=== PATIENT | female | born 1980 | race Caucasian/White ===

== ENCOUNTER 2016-09-27 13:16 | Emergency (ER) | payer BC ==
[2016-09-27 13:34] VITALS: TEMP 98.6; BMI 20.2
--- NOTE | 2016-09-27 13:53 | PDOC ---
History of Present Illness - General History Source: Patient Exam Limitations: No Limitations - History of Present Illness Initial Comments: 09/27/16 14:22 The patient is a 36 year old female , with no significant past medical history who presents to the emergency department sent from [facility] DEVELOPER office for further evaluation of elevated blood pressure today. The patient reports a headache since she woke up this morning. She describes the headache as a pressure. She reports associated blurry vision. She denies any history of headaches in the past. The patient denies any chest pain, shortness of breath, diaphoresis, or palpitations. The patient denies any weakness, fever, chills, cough, dizziness, or lightheadedness. The patient denies any changes in dietary habits. Allergies: None reported. Past Surgical History: None reported. Social History: Non-smoker. Denies alcohol or drug use. PCP: Dr. Guevara SSRS DEVELOPER: Dr. Pete <Colin Aragon - Last Filed: 09/27/16 14:25> <Jessica Soto - Last Filed: 09/29/16 07:22> - General Chief Complaint: Blood Pressure Problem Stated Complaint: HIGH BLOOD PRESSURE, PCP SENT Time Seen by Provider: 09/27/16 13:49 Past History <Colin Aragon - Last Filed: 09/27/16 14:25> - Psycho/Social/Smoking Cessation Hx Suicidal Ideation: No Smoking History: Never smoked <Jessica Soto - Last Filed: 09/29/16 07:22> - Past Medical History Allergies/Adverse Reactions: Allergies Allergy/AdvReac Type Severity Reaction Status Date / Time No Known Allergies Allergy Verified 09/27/16 13:31 Home Medications: Ambulatory Orders NK [No Known Home Medication] 09/27/16 Review of Systems - Review of Systems Able to Perform ROS?: Yes Comments:: 09/27/16 14:22 GENERAL/CONSTITUTIONAL: No fever or chills. No weakness. HEAD, EYES, EARS, NOSE AND THROAT: +Blurry vision. No ear pain or discharge. No sore throat. CARDIOVASCULAR: +Elevated blood pressure. No chest pain or shortness of breath. RESPIRATORY: No cough, wheezing, or hemoptysis. GASTROINTESTINAL: No nausea, vomiting, diarrhea or constipation. GENITOURINARY: No dysuria, frequency, or change in urination. MUSCULOSKELETAL: No joint or muscle swelling or pain. No neck or back pain. SKIN: No rash NEUROLOGIC: +Headache. No vertigo, loss of consciousness, or change in strength/ sensation. ENDOCRINE: No increased thirst. No abnormal weight change. HEMATOLOGIC/LYMPHATIC: No anemia, easy bleeding, or history of blood clots. ALLERGIC/IMMUNOLOGIC: No hives or skin allergy. <Colin Aragon - Last Filed: 09/27/16 14:25> *Physical Exam - Vital Signs Last Vital Signs Temp Pulse Resp BP Pulse Ox 98.6 F 86 19 159/108 100 09/27/16 13:31 09/27/16 13:31 09/27/16 13:09/27/16 13:09/27/16 13:31 - Physical Exam Comments: 09/27/16 14:24 GENERAL: Awake, alert, and fully oriented, in no acute distress HEAD: No signs of trauma EYES: PERRLA, EOMI, sclera anicteric, conjunctiva clear ENT: Auricles normal inspection, hearing grossly normal, nares patent, oropharynx clear without exudates. Moist mucosa NECK: Normal ROM, supple, no lymphadenopathy, JVD, or masses LUNGS: Breath sounds equal, clear to auscultation bilaterally. No wheezes, and no crackles HEART: Regular rate and rhythm, normal S1 and S2, no murmurs, rubs or gallops ABDOMEN: Soft, nontender, normoactive bowel sounds. No guarding, no rebound. No masses EXTREMITIES: Normal range of motion, no edema. No clubbing or cyanosis. No cords, erythema, or tenderness NEUROLOGICAL: Cranial nerves II through XII grossly intact. Normal speech, normal gait. Motor strength and sensation intact SKIN: Warm, Dry, normal turgor, no rashes or lesions noted. <Colin Aragon - Last Filed: 09/27/16 14:25> - Vital Signs Last Vital Signs Temp Pulse Resp BP Pulse Ox 98.6 F 86 19 159/108 100 09/27/16 13:31 09/27/16 13:31 09/27/16 13:31 09/27/16 13:31 09/27/16 13:31 - Physical Exam Comments: VA: OS 20/50, OD 20/40 <Jessica Soto - Last Filed: 09/29/16 07:22> ED Treatment Course - LABORATORY CBC & Chemistry Diagram: 09/27/16 14:35 09/27/16 14:35 <Jessica Soto - Last Filed: 09/29/16 07:22> Medical Decision Making - Medical Decision Making 09/27/16 17:[address] Delong at shift change. Awaiting CTH to evaluate for c/ o high BP with headache and blurry vision. If wnl, likely DC home with prompt PMD f/u for repeat BP check. <Jessica Soto - Last Filed: 09/29/16 07:22> *DC/Admit/Observation/Transfer - Attestations Scribe Attestion: 09/27/16 14:25 Documentation prepared by Colin Aragon, acting as medical staff specialist for Jessica Soto MD. <Colin Aragon - Last Filed: 09/27/16 14:25> <Jessica Soto - Last Filed: 09/29/16 07:22> Diagnosis at time of Disposition: Elevated blood pressure - Discharge Dispostion Disposition: HOME Condition at time of disposition: Stable - Referrals Referrals: Chino Guevara MD [Staff Physician] - - Patient Instructions Printed Discharge Instructions: DI for High Blood Pressure Additional Instructions: Activity as tolerated. Stay hydrated. Tylenol 1000 mg every 8 hours and/or ibuprofen 600 mg every 8 hours as needed for pain. Blood tests and a CT scan of the head showed no acute abnormalities. Your blood pressure is elevated, and this needs to be rechecked with Dr. Guevara as soon as possible to evaluate if you need blood pressure medicine. You should follow up with your primary doctor as soon as possible (Thursday morning) regarding today's emergency department visit. Return to the emergency department for any new or concerning symptoms, particularly severe headache, vision changes, chest pain or difficulty breathing , difficulty speaking or focal weakness.
[2016-09-27 14:41] LABS: BASOPHIL 0.7 % (0-2.0); EOSINOPHIL 0.8 % (0-4.5); MCH 27.1 pg (25.7-33.7); MCHC 32.2 g/dl (32.0-36.0); MEAN CELL VOLUME 84.2 fl (80-96); MEAN PLT VOLUME 8.2 fl (7.5-11.1); PLATELET COUNT 265 K/MM3 (134-434); RDW 14.1 % (11.6-15.6); WHITE BLOOD COUNT 13.3 K/mm3 (4.0-10.0)
[2016-09-27 15:09] LABS: ALBUMIN 3.9 g/dl (3.4-5.0); ALK PHOS 66 U/L (45-117); ANION GAP 9 (8-16); BILIRUBIN,TOTAL 0.3 mg/dL (0.2-1.0); CALCIUM 9.1 mg/dL (8.5-10.1); CO2 26 mmol/L (21-32); CREATININE 0.6 mg/dL (0.55-1.02); GLUCOSE,RANDOM 82 mg/dL (74-106); SGOT/AST 13 U/L (15-37); SGPT/ALT 24 U/L (12-78); TOT PROT 7.3 g/dl (6.4-8.2)
--- NOTE | 2016-09-27 17:46 | PDOC ---
*Physical Exam - Vital Signs Last Vital Signs Temp Pulse Resp BP Pulse Ox 98.6 F 75 20 153/95 100 09/27/16 13:31 09/27/16 15:31 09/27/16 15:31 09/27/16 15:31 09/27/16 15:31 ED Treatment Course - LABORATORY CBC & Chemistry Diagram: 09/27/16 14:35 09/27/16 14:35 - ADDITIONAL ORDERS Additional order review: Laboratory Results 09/27/16 09/27/16 14:35 14:35 Sodium 140 Potassium 4.3 Chloride 105 Carbon Dioxide 26 Anion Gap 9 BUN 11 Creatinine 0.6 Creat Clearance w eGFR > 60 Random Glucose 82 Calcium 9.1 Total Bilirubin 0.3 AST 13 L ALT 24 Alkaline Phosphatase 66 Total Protein 7.3 Albumin 3.9 Serum , Qual Negative 09/27/16 14:35 RBC 4.90 MCV 84.2 MCHC 32.2 RDW 14.1 MPV 8.2 Neutrophils % 72.0 Lymphocytes % 20.6 Monocytes % 5.9 Eosinophils % 0.8 Basophils % 0.7 Medical Decision Making - Medical Decision Making 09/27/16 17:45 Received signout on this 36-year-old female with incidental elevated blood pressure at outpatient office. Lab work within normal limits, plan was to check CT head given history of headache and discharge if negative to follow-up with her primary physician. 09/27/16 19:42 CT head without acute pathology. Patient ambulating in ED, feels well, remains neurologically intact without cardiopulmonary complaints. Discussed next steps and importance of seeing Dr. Guevara on Thursday, understands return criteria, agrees with d/c plan. *DC/Admit/Observation/Transfer Diagnosis at time of Disposition: Elevated blood pressure - Discharge Dispostion Disposition: HOME Condition at time of disposition: Stable - Referrals Referrals: Chino Guevara MD [Staff Physician] - - Patient Instructions Printed Discharge Instructions: DI for High Blood Pressure Additional Instructions: Activity as tolerated. Stay hydrated. Tylenol 1000 mg every 8 hours and/or ibuprofen 600 mg every 8 hours as needed for pain. Blood tests and a CT scan of the head showed no acute abnormalities. Your blood pressure is elevated, and this needs to be rechecked with Dr. Guevara as soon as possible to evaluate if you need blood pressure medicine. You should follow up with your primary doctor as soon as possible (Thursday) regarding today's emergency department visit. Return to the emergency department for any new or concerning symptoms, particularly severe headache, vision changes, chest pain or difficulty breathing , difficulty speaking or focal weakness.
[2016-09-27 20:18] VITALS: BP 142/86; PULSE 80
== END 2016-09-27 20:19 | disposition home or self-care (01) ==
LOC: JER 13:16
DX: I10 Essential (primary) hypertension (principal)
CPT/HCPCS: 36415; 70450-TC; 80053; 84703; 85025; 99281-25

== ENCOUNTER 2018-05-12 08:00 | Inpatient (IN) | payer BC ==
[2018-05-12 09:09] VITALS: BMI 25.7
[2018-05-12 09:34] LABS: BASO % 0.3 % (0-2.0); EOS % 1.2 % (0-4.5); HEMATOCRIT 39.2 % (32.4-45.2); HEMOGLOBIN 12.4 GM/dL (10.7-15.3); LYMPH % 13.9 % (8-40); MCH 26.7 pg (25.7-33.7); MCHC 31.6 g/dl (32.0-36.0); MEAN CELL VOLUME 84.6 fl (80-96); MEAN PLT VOLUME 9.8 fl (7.5-11.1); MONO % 6.8 % (3.8-10.2); NEUT % 77.8 % (42.8-82.8); PLATELET COUNT 260 K/MM3 (134-434); RBC 4.63 M/mm3 (3.60-5.2); RDW 15.2 % (11.6-15.6); WHITE BLOOD COUNT 12.2 K/mm3 (4.0-10.0)
[2018-05-12 09:52] LABS: INR 0.93 (0.83-1.09)
[2018-05-12 09:54] LABS: ACTIVATED PTT 23.6 SECONDS (25.2-36.5)
[2018-05-12 09:57] LABS: ANION GAP 8 MMOL/L (8-16); BLOOD UREA NITROGEN 6 mg/dL (7-18); CALCIUM 8.6 mg/dL (8.5-10.1); CHLORIDE 110 mmol/L (98-107); CO2 21 mmol/L (21-32); CREATININE 0.6 mg/dL (0.55-1.3); GLUCOSE,RANDOM 71 mg/dL (74-106); POTASSIUM 4.1 mmol/L (3.5-5.1); SODIUM 138 mmol/L (136-145)
[2018-05-12] MEDS: ELECTROLYTE-148 SOLN 1,000 ML IV SCH (10:00)
[2018-05-12] MEDS ORDERED: PROMETHAZINE HCL 25 MG/1 ML VIAL IVPUSH ONE (10:17)
[2018-05-12] MEDS ORDERED: BUTORPHANOL TARTRATE 1 MG/ML VIAL IVPB ONE (10:17)
--- NOTE | 2018-05-12 10:22 | HP ---
Past Medical History - Admission Chief Complaint: Here for labor induction History of Present Illness: 38 y/o with SIUP at 39 weeks (EDC 05/19 by first trimester ultrasound) here for scheduled labor induction. Pt with h/o chronic HTN. AMA. GBS positive. otherwise uncomplicated. History Source: Medical Record Limitations to Obtaining History: No Limitations - Past Medical History Cardiovascular: Yes: HTN (chronic, no meds, stable) Pulmonary: No: Asthma, COPD Gastrointestinal: No: GERD Hepatobiliary: No: Hepatitis B, Hepatitis C Renal/: No: Cancer, Renal Calculi ...: 6 ...Para: 3 ...Term: 0 ...: 3 ...Spon : 1 ...Induced : 1 ...Multiple Gestation: 0 ...LMP: 08/13/17 ... Weeks Gestation by Dates: 38.6 ...EDC by Dates: 05/20/18 ...EDC by Sono: 05/20/18 Heme/Onc: No: Anemia Infectious Disease: No: HIV, MRSA, STD's Psych: No: Addictions, Anxiety, Bipolar - Past Surgical History Hx Myomectomy: No Hx Transabdominal Cerclage: No - Smoking History Smoking history: Never smoked Have you smoked in the past 12 months: No - Alcohol/Substance Use Hx Alcohol Use: No - Social History Usual Living Arrangement: Yes: With Spouse ADL: Independent History of Recent Travel: No Home Medications - Allergies Allergies/Adverse Reactions: Allergies Allergy/AdvReac Type Severity Reaction Status Date / Time shellfish derived Allergy Severe Swelling Verified 05/12/18 08:38 - Home Medications Home Medications: Ambulatory Orders Pnv,Calcium 72/Iron/Folic Acid [ Plus Tablet] 1 each PO DAILY 05/12/18 Review of Systems - Review of Systems Constitutional: reports: No Symptoms Eyes: reports: No Symptoms HENT: reports: No Symptoms Neck: reports: No Symptoms Cardiovascular: reports: No Symptoms Respiratory: reports: No Symptoms Gastrointestinal: reports: No Symptoms Genitourinary: reports: No Symptoms Breasts: reports: No Symptoms Reported Musculoskeletal: reports: No Symptoms Integumentary: reports: No Symptoms Neurological: reports: No Symptoms Endocrine: reports: No Symptoms Hematology/Lymphatic: reports: No Symptoms Psychiatric: reports: No Symptoms Physical Exam - Maternity Vital Signs: Vital Signs Temperature 98.7 F 05/12/18 10:00 Pulse Rate 117 H 05/12/18 10:00 Respiratory Rate 18 05/12/18 10:00 Blood Pressure 128/90 05/12/18 10:00 O2 Sat by Pulse Oximetry (%) Constitutional: Yes: Well Nourished, No Distress, Calm Eyes: Yes: Conjunctiva Clear, EOM Intact HENT: Yes: Atraumatic, Normocephalic Neck: Yes: Supple, Trachea Midline Cardiovascular: Yes: Regular Rate and Rhythm Lungs: Clear to auscultation - Abdominal Exam/OB Fundal Height: 38 Number of Fetuses: Single Presentation: Vertex Contractions: Yes Regularity: Irregular Intensity: Mild/Mod Heart Rate (range): 155 Category: I Accelerations: Uniform Decelerations: None - Vaginal Exam/OB Vaginal Bleediing: No Dilatation (cm): 0.5 Effacement (%): 50 Amniotic Membrane Status: Intact Presentation: Vertex/Position Station: -3 - Physical Exam Musculoskeletal: Yes: WNL Extremities: Yes: WNL Psychiatric: Yes: Alert, Oriented - Labs Lab Results: CBC, BMP 05/12/18 09:10 05/12/18 09:10 Hemorrhage Risk Assessment - Risk Factors Medium Risk Factors: Yes: None High Risk Factors: Yes: None Risk Score: 1 Risk Level: Medium Risk Problem List - Problems (1) Chronic hypertension affecting Code(s): O10.919 - UNSP PRE-EXISTING HTN COMP , UNSP TRIMESTER (2) Term Code(s): Z34.80 - ENCOUNTER FOR SUPRVSN OF NORMAL , UNSP TRIMESTER (3) Advanced maternal age in multigravida Code(s): O09.529 - SUPERVISION OF ELDERLY MULTIGRAVIDA, UNSPECIFIED TRIMESTER Assessment/Plan 38 y/o P3 female with SIUP at 39 weeks, IOL for cHTN AFVSS FHT cat 1 clear liquid diet cervidil placed ampicillin ordered for GBS PPx
[2018-05-12] MEDS ORDERED: AMPICILLIN - 2 GM in SODIUM CHLORIDE 100 ML IVPB ONE (10:25)
[2018-05-12] MEDS ORDERED: AMPICILLIN SODIUM 2 GM VIAL ONE (10:32)
[2018-05-12] MEDS ORDERED: DINOPROSTONE 10 MG VAGINAL SUPPOSITORY VG ONE (12:06)
[2018-05-12] MEDS ORDERED: TUBERCULIN PPD 5 TU/0.1ML SYRINGE (IN PATIENT USE ONLY) ID ONE (13:00)
[2018-05-12] MEDS ORDERED: AMPICILLIN SODIUM 1 GM VIAL ONE ×3 (14:22→22:31)
[2018-05-12] MEDS: AMPICILLIN - 1 GM in SODIUM CHLORIDE 100 ML IVPB SCH ×3 (14:35→22:30)
[2018-05-12] MEDS ORDERED: BUTORPHANOL TARTRATE 1 MG/ML VIAL ONE ×2 (20:16)
[2018-05-12] MEDS ORDERED: PROMETHAZINE HCL 25 MG/1 ML VIAL ONE (20:16)
--- NOTE | 2018-05-12 20:28 | PN ---
Ante-Partal Exam - Subjective Vital Signs: Vital Signs Temperature 99.0 F 05/12/18 20:00 Pulse Rate 82 05/12/18 20:00 Respiratory Rate 20 05/12/18 20:00 Blood Pressure 134/85 05/12/18 20:00 O2 Sat by Pulse Oximetry (%) Bleeding: Yes Bleeding Description: Mild (scant bleeding) Headache: No Visual changes: No Right upper quadrant pain: No Pain (scale 1-10): 9 - Contractions Contractions: Yes Regularity: Regular Intensity: Moderate Monitor Mode: External - Exam during Labor Variability: Moderate Category: I Monitor Accelerations: Present Monitor Decelerations: None Exam: Vaginal Dilatation (cm): 2.5 Effacement (%): 70 Amniotic Membrane Status: Bulging Presentation: Vertex Station: -3 - Assessment/Plan Assessment/Plan: 38 y/o P3 with SIUP at 39 weeks, IOL for cHTN AFVSS FHTS cat 1 IOL - cervidil removed, to start pitocin for stadol/phenergan AROM at next check
[2018-05-12] MEDS ORDERED: OXYTOCIN 30 UNITS in 0.9% NS 30 UNIT/500 ML INFUS.BAG IVPB ONE (20:40)
[2018-05-12] MEDS ORDERED: OXYTOCIN 30 UNITS in 0.9% NS 30 UNIT/500 ML INFUS.BAG IVPB SCH (21:00)
--- NOTE | 2018-05-12 21:36 | PN ---
Ante-Partal Exam - Subjective Subjective: Pt with prolonged deceleration - came to evaluate patient. Pt resting comfortably, exam showed cervix 3-4 cm dilated and head well applied with bulging membranes. Vital Signs: Vital Signs Temperature 99.0 F 05/12/18 20:00 Pulse Rate 87 05/12/18 21:00 Respiratory Rate 20 05/12/18 20:00 Blood Pressure 129/79 05/12/18 21:00 O2 Sat by Pulse Oximetry (%) Bleeding: Yes Bleeding Description: Mild Headache: Yes Visual changes: No Right upper quadrant pain: No Pain (scale 1-10): 6 (Pt sleeping s/p stadol/phenergan) - Contractions Contractions: Yes Regularity: Regular Intensity: Strong - Exam during Labor Heart Rate: 130 Variability: Minimal (Pt s/p stadol) Monitor Decelerations: Prolonged (single prolonged deceleration resolved after position change) Amniotic Membrane Status: Ruptured Amniotic Fluid: Clear Presentation: Vertex Station: -1 - Assessment/Plan Assessment/Plan: AROM and FSE applied FHR back to baseline pitocin discontinued continue to monitor
[2018-05-12] MEDS ORDERED: FENTANYL/BUPIVACAINE/NS/PF - PCEA - 50 ML DISP.SYRIN EP ONE (23:10)
[2018-05-13] MEDS ORDERED: NALOXONE HCL 0.4 MG/ML VIAL IVPUSH PRN (00:28)
[2018-05-13] MEDS ORDERED: FENTANYL/BUPIVACAINE/NS/PF - PCEA - 50 ML DISP.SYRIN EP SCH (00:30)
[2018-05-13] MEDS ORDERED: AMPICILLIN SODIUM 1 GM VIAL ONE ×2 (02:14→06:29)
[2018-05-13] MEDS: AMPICILLIN - 1 GM in SODIUM CHLORIDE 100 ML IVPB SCH (02:30)
[2018-05-13] MEDS ORDERED: FENTANYL/BUPIVACAINE/NS/PF - PCEA - 50 ML DISP.SYRIN EP ONE (04:42)
--- NOTE | 2018-05-13 06:03 | PN ---
Ante-Partal Exam - Subjective Subjective: Came to evaluate patient for tachycardia and recurrent variable decelerations. Vital Signs: Vital Signs Temperature 99.1 F 05/13/18 03:57 Pulse Rate 92 H 05/13/18 04:00 Respiratory Rate 18 05/13/18 04:00 Blood Pressure 110/57 L 05/13/18 04:00 O2 Sat by Pulse Oximetry (%) 100 05/13/18 04:00 Bleeding: Yes Bleeding Description: Mild (consistent with bloody show) Headache: No Visual changes: No Right upper quadrant pain: No Pain (scale 1-10): 0 (Pt comfortalbe with epidural) - Contractions Contractions: Yes Regularity: Irregular - Exam during Labor Heart Rate: 145 (FHR improved after examination/position change and start of amnioinfusion) Variability: Moderate Category: II Monitor Accelerations: Present Monitor Decelerations: Variable Exam: Vaginal Dilatation (cm): 6 Amniotic Membrane Status: Ruptured Presentation: Vertex - Assessment/Plan Assessment/Plan: 38 y/o with SIUP at 39 weeks, IOL s/p cervidil and pitocin and AROM IUPC placed and amnioinfusion started for recurrent variable decelerations pitocin turned off will monitor
[2018-05-13] MEDS ORDERED: OXYTOCIN 20 UNITS in 0.9% NS 20 UNIT/1,000 ML INFUS.BAG IV ONE ×2 (09:44→11:36)
[2018-05-13] MEDS ORDERED: ceFAZolin SODIUM 1 GM VIAL ONE (09:45)
--- NOTE | 2018-05-13 09:53 | PN ---
Ante-Partal Exam - Subjective Subjective: pt seen/evaluated FHR in 160s, nonrecurrent variable decelerations cervix still 6cm dilated upon restarting pitocin (contractions very irregular) pt with prolonged deceleration Vital Signs: Vital Signs Temperature 98.3 F 05/13/18 07:25 Pulse Rate 91 H 05/13/18 09:00 Respiratory Rate 18 05/13/18 09:00 Blood Pressure 104/52 L 05/13/18 09:00 O2 Sat by Pulse Oximetry (%) 100 05/13/18 09:00 Bleeding: Yes Bleeding Description: Mild Headache: No Visual changes: No Right upper quadrant pain: No - Contractions Contractions: Yes Regularity: Irregular Intensity: Mild Monitor Mode: External - Exam during Labor Heart Rate: 160 Variability: Moderate Category: II Monitor Accelerations: Present Monitor Decelerations: Variable (and occasional prolonged) Exam: Vaginal Dilatation (cm): 6 Effacement (%): 90 Amniotic Membrane Status: Ruptured Amniotic Fluid: Clear Presentation: Vertex Station: -1 - Assessment/Plan Assessment/Plan: 38 y/o with SIUP at 39 weeks, IOL for cHTN/AMA now with intolerance to labor/pitocin discussed options with patient Risks/Benefits/Alternatives discussed plan for delivery consents signed anesthesia aware
[2018-05-13] MEDS ORDERED: METHYLERGONOVINE MALEATE 0.2 MG/1 ML AMP IM PRN (09:56)
[2018-05-13] MEDS ORDERED: IBUPROFEN 800 MG/8 ML IJ IVPB PRN (09:56)
[2018-05-13] MEDS ORDERED: oxyCODONE HCL 5 MG TABLET PO PRN (09:56)
[2018-05-13 10:55] LABS: VENOUS PC02 46.6 mmHg (38-52); VENOUS PH 7.3 (7.32-7.42)
[2018-05-13 11:00] LABS: ARTERIAL BLD GAS O2 SATURATION 6.1 % (90-98.9); ARTERIAL BLOOD GAS PCO2 62.2 mmHg (35-45)
[2018-05-13 11:01] LABS: ARTERIAL BLOOD GAS PO2 7.4 mmHg (80-100)
[2018-05-13] MEDS: PRENATAL VITAMINS W/ FOLIC ACID TABLET (FP) PO SCH (11:34)
[2018-05-13] MEDS: OXYTOCIN 20 UNITS in 0.9% NS 20 UNIT/1,000 ML INFUS.BAG IV SCH (11:35)
[2018-05-13] MEDS ORDERED: IBUPROFEN 800 MG/8 ML IJ IVPB ONE (12:00)
--- NOTE | 2018-05-13 13:43 | SURG ---
Surgery Dolly Operator Note Dolly Operator: Alverto Flores PA-C Date of Service: 05/13/18 Diagnosis: Delayed labor Procedure: I was present for the entirety of the operative procedure. For further detail, please refer to operative report.
[2018-05-14] MEDS: FENTANYL/BUPIVACAINE/NS/PF - PCEA - 50 ML DISP.SYRIN EP SCH (00:48)
[2018-05-14] MEDS: ELECTROLYTE-148 SOLN 1,000 ML IV SCH (01:02)
[2018-05-14] MEDS: AMPICILLIN - 1 GM in SODIUM CHLORIDE 100 ML IVPB SCH (01:05)
[2018-05-14] MEDS: SIMETHICONE 80 MG TAB.CHEW (FP) PO PRN ×3 (04:54→19:56)
[2018-05-14] MEDS: ACETAMINOPHEN 325 MG TABLET (FP) PO PRN ×3 (04:54→19:56)
[2018-05-14] MEDS: IBUPROFEN 600 MG TABLET (FP) PO PRN ×3 (04:55→19:57)
[2018-05-14 07:54] LABS: BASO % 0.3 % (0-2.0); EOS % 0.6 % (0-4.5); HEMATOCRIT 30.5 % (32.4-45.2); HEMOGLOBIN 9.6 GM/dL (10.7-15.3); MCH 26.7 pg (25.7-33.7); MCHC 31.6 g/dl (32.0-36.0); MEAN CELL VOLUME 84.4 fl (80-96); MEAN PLT VOLUME 9.1 fl (7.5-11.1); MONO % 4.8 % (3.8-10.2); NEUT % 86.3 % (42.8-82.8); PLATELET COUNT 206 K/MM3 (134-434); RBC 3.62 M/mm3 (3.60-5.2); RDW 15.1 % (11.6-15.6); WHITE BLOOD COUNT 14.2 K/mm3 (4.0-10.0)
[2018-05-14] MEDS: PRENATAL VITAMINS W/ FOLIC ACID TABLET (FP) PO SCH (09:42)
[2018-05-14] MEDS ORDERED: BISACODYL 10 MG SUPP.RECT RC PRN (09:56)
[2018-05-14] MEDS ORDERED: FLU VACCINE QUAD 60 MCG/0.5 ML (MDV 18-19) IM ONE (10:00)
[2018-05-14] MEDS ORDERED: DIPHTH,PERTUSS(ACELL),TET 0.5 ML DISP.SYRIN IM ONE (10:00)
--- NOTE | 2018-05-14 14:39 | PN ---
Post Progress Note Type of Delivery: Primary C/S Vital Signs: Vital Signs Temperature 99.5 F 05/14/18 09:00 Pulse Rate 106 H 05/14/18 09:00 Respiratory Rate 20 05/14/18 10:00 Blood Pressure 114/69 05/14/18 09:00 O2 Sat by Pulse Oximetry (%) 100 05/13/18 12:00 Uterus: Yes: Fundus Firm Incision: Yes: Sutures intact Abdomen/GI: Yes: Abdomen soft Lochia: Yes: Rubra Lochia, amount: Small Extremities: Yes: Calves non-tender. No: Edema Perineum: Yes: Intact Activity: Ambulating - Labs Labs: CBC WBC 14.2 K/mm3 (4.0-10.0) H 05/14/18 07:00 RBC 3.62 M/mm3 (3.60-5.2) 05/14/18 07:00 Hgb 9.6 GM/dL (10.7-15.3) L 05/14/18 07:00 Hct 30.5 % (32.4-45.2) L D 05/14/18 07:00 MCV 84.4 fl (80-96) 05/14/18 07:00 MCH 26.7 pg (25.7-33.7) 05/14/18 07:00 MCHC 31.6 g/dl (32.0-36.0) L 05/14/18 07:00 RDW 15.1 % (11.6-15.6) 05/14/18 07:00 Plt Count 206 K/MM3 (134-434) D 05/14/18 07:00 MPV 9.1 fl (7.5-11.1) 05/14/18 07:00 Absolute Neuts (auto) 12.2 K/mm3 (1.5-8.0) H 05/14/18 07:00 Neutrophils % 86.3 % (42.8-82.8) H 05/14/18 07:00 Lymphocytes % 8.0 % (8-40) D 05/14/18 07:00 Monocytes % 4.8 % (3.8-10.2) 05/14/18 07:00 Eosinophils % 0.6 % (0-4.5) 05/14/18 07:00 Basophils % 0.3 % (0-2.0) 05/14/18 07:00 Nucleated RBC % 0 % (0-0) 05/14/18 07:00 Problem List - Problems (1) Chronic hypertension affecting Code(s): O10.919 - UNSP PRE-EXISTING HTN COMP , UNSP TRIMESTER (2) Term Code(s): Z34.80 - ENCOUNTER FOR SUPRVSN OF NORMAL , UNSP TRIMESTER (3) Advanced maternal age in multigravida Code(s): O09.529 - SUPERVISION OF ELDERLY MULTIGRAVIDA, UNSPECIFIED TRIMESTER Assessment/Plan 38 y/o POD#1 s/p primary delivery AFVSS Hgb 9.6, continue vitamins and Iron regular diet PO pain meds routine care
[2018-05-14] MEDS: OXYTOCIN 20 UNITS in 0.9% NS 20 UNIT/1,000 ML INFUS.BAG IV SCH (21:07)
[2018-05-14] MEDS: oxyCODONE HCL 5 MG TABLET PO PRN (21:09)
[2018-05-15] MEDS: ACETAMINOPHEN 325 MG TABLET (FP) PO PRN ×3 (07:56→21:30)
[2018-05-15] MEDS: SIMETHICONE 80 MG TAB.CHEW (FP) PO PRN ×3 (07:56→21:29)
[2018-05-15] MEDS: IBUPROFEN 600 MG TABLET (FP) PO PRN ×3 (07:57→21:29)
--- NOTE | 2018-05-15 08:34 | PN ---
Post Progress Note - Subjective Subjective: 38 yo Para 2 status post primary , seen and evaluated. She's lying in bed; c/o incision pain. Post Day: 2 Type of Delivery: Primary C/S Vital Signs: Vital Signs Temperature 98.2 F 05/14/18 22:00 Pulse Rate 97 H 05/14/18 22:00 Respiratory Rate 18 05/14/18 22:00 Blood Pressure 129/83 05/14/18 22:00 O2 Sat by Pulse Oximetry (%) 100 05/13/18 12:00 Breast Exam: Yes: Soft Uterus: Yes: Fundus below umbilicus Incision: Yes: Dressing dry and intact Abdomen/GI: Yes: Abdomen soft, Tolerating PO Lochia: Yes: Rubra Lochia, amount: Small Extremities: Yes: Calves non-tender Activity: Ambulating - Labs Labs: CBC WBC 14.2 K/mm3 (4.0-10.0) H 05/14/18 07:00 RBC 3.62 M/mm3 (3.60-5.2) 05/14/18 07:00 Hgb 9.6 GM/dL (10.7-15.3) L 05/14/18 07:00 Hct 30.5 % (32.4-45.2) L D 05/14/18 07:00 MCV 84.4 fl (80-96) 05/14/18 07:00 MCH 26.7 pg (25.7-33.7) 05/14/18 07:00 MCHC 31.6 g/dl (32.0-36.0) L 05/14/18 07:00 RDW 15.1 % (11.6-15.6) 05/14/18 07:00 Plt Count 206 K/MM3 (134-434) D 05/14/18 07:00 MPV 9.1 fl (7.5-11.1) 05/14/18 07:00 Absolute Neuts (auto) 12.2 K/mm3 (1.5-8.0) H 05/14/18 07:00 Neutrophils % 86.3 % (42.8-82.8) H 05/14/18 07:00 Lymphocytes % 8.0 % (8-40) D 05/14/18 07:00 Monocytes % 4.8 % (3.8-10.2) 05/14/18 07:00 Eosinophils % 0.6 % (0-4.5) 05/14/18 07:00 Basophils % 0.3 % (0-2.0) 05/14/18 07:00 Nucleated RBC % 0 % (0-0) 05/14/18 07:00 Problem List - Problems (1) Status post primary low transverse section Code(s): Z98.891 - HISTORY OF UTERINE SCAR FROM PREVIOUS SURGERY Assessment/Plan Status post primary Stable Ambulation Analgesia as needed Continue routine post op care
[2018-05-15] MEDS: PRENATAL VITAMINS W/ FOLIC ACID TABLET (FP) PO SCH (10:00)
[2018-05-15] MEDS: oxyCODONE HCL 5 MG TABLET PO PRN (21:30)
--- NOTE | 2018-05-16 02:49 | DS ---
Physical Exam-COMMUTATOR PRESSER Vital Signs: Vital Signs Temperature 98.6 F 05/15/18 22:00 Pulse Rate 97 H 05/15/18 22:00 Respiratory Rate 18 05/15/18 22:00 Blood Pressure 126/77 05/15/18 22:00 O2 Sat by Pulse Oximetry (%) 100 05/13/18 12:00 Constitutional: Yes: Well Nourished Eyes: Yes: Conjunctiva Clear HENT: Yes: Atraumatic Neck: Yes: Supple Cardiovascular: Yes: Regular Rate and Rhythm Respiratory: Yes: Regular Gastrointestinal: Yes: Normal Bowel Sounds External Genitalia: Yes: Normal Vaginal Exam: Yes: Normal Cervix: Yes: Normal Uterus: Yes: Firm Wound/Incision: Yes: Well Approximated Neurological: Yes: Alert, Oriented ...Motor Strength: WNL Psychiatric: Yes: Alert, Oriented Labs: CBC, BMP 05/14/18 07:00 05/12/18 09:10 Delivery - Delivery Type of Anesthesia: Epidural Episiotomy/Laceration: None EBL (cc): 600 Delivery, Single - Stages of Labor Date 1st Stage Initiatied: 05/12/18 Time 1st Stage Initiated: 05:30 Date of Delivery: 05/13/18 Time of Delivery: 10:14 Time Placenta Delivered: 10:15 - Condition of Infant Certified Marine Mechanic/Oncology Physician Assistant Present: Yes Name: Cesar De Leon Gender: Male Weight: 6 lb 3 oz Position: Left, OA Total Hours ROM (Hrs/Mins): 14hrs/7mins - 1 Minute Total Score: 9 5 Minutes Total Score: 9 - [place] Feeding Plan Initial Plan: Exclusive throughout hospitalization Discharge Summary Current Active Problems Advanced maternal age in multigravida (Acute) Chronic hypertension affecting (Acute) Status post primary low transverse section (Acute) Term (Acute) Procedures: Principal: delivery Hospital Course: Routine post op care Condition: Good - Instructions Diet, Activity, Other Instructions: Regular diet No driving, no lifting x 4 weeks F/U with MD in one week Disposition: HOME - Home Medications Comprehensive Discharge Medication List: Ambulatory Orders Pnv,Calcium 72/Iron/Folic Acid [ Plus Tablet] 1 each PO DAILY 05/12/18
[2018-05-16] MEDS: SIMETHICONE 80 MG TAB.CHEW (FP) PO PRN (07:21)
[2018-05-16] MEDS: IBUPROFEN 600 MG TABLET (FP) PO PRN (07:21)
[2018-05-16] MEDS: ACETAMINOPHEN 325 MG TABLET (FP) PO PRN (07:22)
[2018-05-16 07:25] LABS: BASO % 0.3 % (0-2.0); EOS % 2.7 % (0-4.5); HEMATOCRIT 26.9 % (32.4-45.2); HEMOGLOBIN 8.6 GM/dL (10.7-15.3); LYMPH % 20.5 % (8-40); MCH 26.9 pg (25.7-33.7); MCHC 32.2 g/dl (32.0-36.0); MEAN CELL VOLUME 83.7 fl (80-96); MEAN PLT VOLUME 8.8 fl (7.5-11.1); MONO % 6.7 % (3.8-10.2); NEUT % 69.8 % (42.8-82.8); PLATELET COUNT 227 K/MM3 (134-434); RBC 3.21 M/mm3 (3.60-5.2); RDW 15.2 % (11.6-15.6); WHITE BLOOD COUNT 8.8 K/mm3 (4.0-10.0)
[2018-05-16 09:10] VITALS: BP 133/88; PULSE 76; TEMP 97.9
[2018-05-16] MEDS: PRENATAL VITAMINS W/ FOLIC ACID TABLET (FP) PO SCH (10:36)
--- NOTE | 2018-05-20 09:31 | OP ---
Operative Note - Note: Operative Date: 05/13/18 (dictation [id number]) Pre-Operative Diagnosis: Arrest of dilation, intolerance of labor Operation: primary section - low transverse Findings: normal bilateral tubes and ovaries live male Post-Operative Diagnosis: Same as Pre-op Surgeon: Kaylynn Bar Engine Dynamometer Tester: Alverto Flores Anesthesia: Epidural Specimens Removed: placenta Estimated Blood Loss (mls): 600 Operative Report Dictated: Yes
--- NOTE | 2018-05-20 12:30 | OP ---
DATE OF OPERATION: 05/13/2018 PREOPERATIVE DIAGNOSES: Arrest of cervical dilation, intolerance to labor. POSTOPERATIVE DIAGNOSES: Arrest of cervical dilation, intolerance to labor. PROCEDURE: Primary low transverse section. SURGEON: Kaylynn Bar DO MANAGER ALLIANCE: Alverto Flores PA-C ANESTHESIA: Epidural by Harley Witt DO. ESTIMATED BLOOD LOSS: 600 mL COUNT: Sponge, needle, and instrument count correct. SPECIMEN: Placenta. COMPLICATIONS: None. DISPOSITION: Stable to recovery room. BRIEF HISTORY AND PROCEDURE: Patient is a 38-year-old female who had been admitted to [facility] on May 12, 2018, for induction of labor. The patient received Cervidil on the morning of May 12, 2018, which was removed in the evening of May 12, 2018, at which point Pitocin was initiated. Overnight, patient did dilate to approximately 6 cm. However, with each initiation of Pitocin, the heart rate showed variable and prolonged decelerations. After several attempts at restarting the Pitocin, the patient remained dilated at 6 cm, and we were unable to augment her labor. On the morning of May 13, 2018, the decision was made to proceed with a delivery. The patient was counseled on the options. She decided to go ahead with the procedure. She was then taken back to the operating room. An epidural, which had been placed the night before, was used for anesthesia purposes. She was placed in the dorsal supine position. A Zaldivar catheter had been placed earlier under sterile conditions. A hard timeout was performed. A Pfannenstiel skin incision was created in the skin with scalpel and carried to the underlying layer of rectus fascia sharply. The fascia was incised on either side of the midline and carried in superolateral direction bluntly. The fascia was tented upward and dissected off the underlying layer of rectus muscle bluntly, and the midline of the rectus muscle was identified. The muscles were laterally. The peritoneum was then identified and entered bluntly, and a bladder blade was then inserted. A low transverse incision was created on the uterus, was extended in a superolateral direction bluntly. The was then delivered without difficulty. Left and right shoulders were delivered with ease along with the remainder of the . The cord was clamped twice and cut in between, and the was taken over to the warmer to be assessed by the neonatology staff. The placenta was then delivered with a 3-vessel cord and was manually extracted and intact. The uterus was exteriorized from the abdomen, inspected, and cleared of all amniotic membrane and debris with a dry lap sponge. Hysterotomy was reapproximated in a double-layer closure using 1 Vicryl in a running locked fashion as the first layer and 0 Biosyn in a running fashion as the second layer. Excellent hemostasis was achieved. Bilateral tubes and ovaries were inspected and noted to be within normal limits. The uterus was placed back into the abdomen. Bilateral gutters were inspected and cleared of all debris. The peritoneum was reapproximated using 2-0 chromic in a running fashion. The musculature was reapproximated using several interrupted sutures using 2-0 chromic suture. The fascia was reapproximated using 1 Vicryl in a running fashion. Subcutaneous tissue was irrigated, and all bleeding was controlled with the Bovie device. The skin was reapproximated using 3-0 Vicryl suture in a subcuticular fashion, and Steri-Strips were applied. The patient tolerated the procedure well, recovering in stable condition after the procedure. Sponge, needle, and instrument count was reported to be correct. KAYLYNN BAR DO /[id number]
--- NOTE | 2018-05-21 15:22 | PATH ---
Surgical Pathology Report Patient Name: ANALILIA SAAVEDRA Med. Rec. #: [id number] /Age/Gender: 1980 (Age: 38) / F Account: [id number] Location: [facility] OBS/CIRCLE EDGER Taken: 05/13/2018 Received: 05/14/2018 Reported: 05/21/2018 Physicians: Kaylynn Bar M.D. Specimen(s) Received PLACENTA Clinical History , 39 weeks x3 Final Diagnosis PLACENTA, SECTION: 307 G THIRD TRIMESTER PLACENTA WITH TRIVASCULAR UMBILICAL CORD AND UNREMARKABLE PLACENTAL MEMBRANES. Electronically Signed Cecille Gómez M.D. Gross Description The specimen is received fresh labeled placenta and is a 307 gram, 13.0 x 12.0 x 2.4 cm. placenta with attached membranes and umbilical cord. The attached membranes are duran, translucent with focal opacities and insert marginally. The umbilical cord measures 25 cm. in length and averages 1 cm. in diameter. The cord inserts eccentrically, 3.5 cm. to the nearest margin. No true knots or strictures are identified. Cut surface of the umbilical cord reveals 3 vessels. The surface is fam-blue with minimal fibrin deposition and appropriate caliber vessels. The maternal surface is red-brown with focal defects. Sectioning reveals red-brown, spongy parenchyma. No lesions are identified. Manager Application sections are submitted in three cassettes as follows: 1- membrane rolls and umbilical cord; 2-3- full thickness sections of placenta. /05/20/2018 saudi05/20/2018
== END 2018-05-16 14:45 | disposition home or self-care (01) | DRG 788 ==
LOC: JLDR 08:00 → J3W 05-13 12:29 → UNDODISIN 05-16 13:17
PROVIDERS: ADMIT Obstetrics & Gynecology; ATTEND Obstetrics & Gynecology
PROC: 10D00Z1 Extraction of Products of Conception, Low, Open Approach (ICD-10-PCS; principal; 2018-05-13)
DX: O10.92 Unspecified pre-existing hypertension complicating childbirth (principal); Z3A.39 39 weeks gestation of pregnancy; Z37.0 Single live birth
CPT/HCPCS: 36415; 36600; 80048; 82803; 85025; 85610; 85730; 86593; 86850; 86900; 86901; 88307-TC; 90715

== ENCOUNTER 2019-09-14 09:15 | Emergency (ER) | payer BC ==
[2019-09-14 09:35] VITALS: BMI 22.6
[2019-09-14] MEDS ORDERED: ACETAMINOPHEN 325 MG TABLET (FP) PO ONE (10:53)
[2019-09-14] MEDS ORDERED: SODIUM CHLORIDE 0.9% 500 ML INFUS.BAG IV ONE (10:53)
[2019-09-14] MEDS ORDERED: ACETAMINOPHEN 325 MG TABLET (FP) ONE (10:56)
--- NOTE | 2019-09-14 11:11 | PDOC ---
Documentation entered by Aurea Mart SCRIBE, acting as scribe for Rach Goodrich MD. Rach Goodrich MD: This documentation has been prepared by the Barron gonzalez Adrianna, SCRIBE, under my direction and personally reviewed by me in its entirety. I confirm that the documentation accurately reflects all work, treatment, procedures, and medical decision making performed by me. History of Present Illness - General Chief Complaint: Vaginal Bleeding Stated Complaint: VAGNIAL BLEEDING 6WKS PRG/ABD PAIN Time Seen by Provider: 09/14/19 09:48 History Source: Patient Exam Limitations: No Limitations - History of Present Illness Initial Comments: 39-year-old female with history of asthma who presents to the ED with complaint of suprapubic pain and vaginal bleeding in . Patient notes she was seen by her OBGYN 4 days ago, was told she is at ~7 weeks gestation, and the sac was visualized on TVUS but the was too small in size. She complains of continued suprapubic and right flank pain and cramping over the past 4 days, which was significantly worse yesterday. Patient reports some associated back pain with nausea, diarrhea, and dizziness for the past 2 days. She endorses some vaginal bleeding at this time, which has been progressively getting better over the past four days. Patient additionally notes she has been experiencing malodorous urine with some blood, increased urinary frequency , urgency, and feeling like she has to push hard to get her urine out at this time. Her LMP was July 14 2019, and she has not had a regular period since. She was seen 08/17/19 for VB in the setting of early as well, treated for bacteruria of with macrobid course which she completed. TVUS without IUP visualized with beta hcg 13,000 at that time, was supposed to repeat hcg and ultrasound. The patient is with 1 miscarriage and 1 stillbirth. She has 3 living children. Denies fever, chills, cough, runny nose, chest pain, SOB, palpitation, dizziness , weakness, V, leg swelling, No sick contacts or travel. No new changes in medications. Allergies: Shellfish Past Medical History: , asthma Social history: Lives with family. No tobacco, ETOH or drug use. Surgical history: None reported Meds: as documented in EMR [facility]BGYN: [facility] ROS: GENERAL/CONSTITUTIONAL: No fever or chills. No weakness. no sweats. HEAD, EYES, EARS, NOSE AND THROAT: No change in vision or hearing. No ear pain or discharge. No sore throat or mouth pain. No difficulty swallowing. No congestion. CARDIOVASCULAR: No chest pain or palpitations, syncope or edema. RESPIRATORY: No SOB, cough, wheezing, or hemoptysis. GASTROINTESTINAL +Nausea. +Diarrhea. No vomiting. No constipation. No bloody stools. GENITOURINARY: +Suprapubic pain and cramping. +Vaginal bleeding. +Malodorous urine with blood. +Urinary frequency. +Urgency. +Push hard to get urine out. MUSCULOSKELETAL: +Back pain. +Right flank pain. No joint or muscle swelling. No decreased range of motion. SKIN: No rash or changes in skin color or lesions. No wounds. NEUROLOGIC: +Dizziness.alert and oriented appropriately No headache, loss of consciousness, or change in strength/sensation. No gait instability. HEMATOLOGIC/LYMPHATIC: No anemia, easy bruising/bleeding, or history of blood clots. No swollen lymph nodes ALLERGIC/IMMUNOLOGIC: No allergies PSYCH: no anxiety/depression All other systems reviewed and negative, or as documented in HPI. Physical Exam: General: Well appearing, awake and alert, NAD. HEENT: NCAT, PERRL, EOMI, clear conjunctiva, anicteric, moist mucous membranes , clear oropharynx, no oral lesions. Neck: neck supple, FROM Resp: CTAB, normal and even respirations, no respiratory distress CVS: RRR, no murmurs, 2+ peripheral pulses throughout, no peripheral edema Abdomen: +Suprapubic tenderness to palpation. soft, ND, no rebound or guarding. No CVAT. Female : +Dried dark brown blood in the vault. normal external genitalia, no lesions, clear vaginal vault, no CMT, no adnexal tenderness. Cervix is closed. Back: +Right flank tenderness to palpation. normal inspection and ROM] MSK: no edema, ROBERTS x4, ROM intact. No clubbing or cyanosis. normal bulk and tone. Extremities: no calf tenderness Neuro: alert, oriented appropriately; no focal neurologic deficits Skin: warm and well perfused, cap refill <2 sec, normal color Past History - Past Medical History Allergies/Adverse Reactions: Allergies Allergy/AdvReac Type Severity Reaction Status Date / Time shellfish derived Allergy Severe Swelling Verified 09/14/19 14:09 Home Medications: Ambulatory Orders Cefpodoxime Proxetil [Vantin -] 200 mg PO Q12H #28 tablet 09/14/19 Asthma: Yes (last attack 1yr ago) Cancer: No Cardiac Disorders: No COPD: No Diabetes: No HTN: Yes Seizures: No Thyroid Disease: No - Psycho Social/Smoking Cessation Hx Smoking History: Never smoked Have you smoked in the past 12 months: No Hx Alcohol Use: Yes Drug/Substance Use Hx: No Hx Substance Use Treatment: No *Physical Exam - Vital Signs Last Vital Signs Temp Pulse Resp BP Pulse Ox 98.7 F 88 16 137/78 100 09/14/19 09:32 09/14/19 09:32 09/14/19 09:32 09/14/19 09:32 09/14/19 09:32 ED Treatment Course - LABORATORY CBC & Chemistry Diagram: 09/14/19 11:10 09/14/19 11:10 - RADIOLOGY Radiology Studies Ordered: Category Date Time Status <14WKS US [US] Stat Ultrasound 09/14/19 11:09 Ordered Radiograph Interpretation: EXAM#: TYPE/EXAM: RESULT: [id number] US/TRANSVAGINAL US PREG Evaluate for IUP Pelvis ultrasound IMPRESSION: Intrauterine gestational sac compatible with 7 weeks of gestation based on the mean sac diameter. No pole or yolk sac are identified. Findings are suggestive of a blighted ovum/failed . Correlate clinically as well as correlation with quantitative serum beta hCG and close follow-up pelvis ultrasound is recommended. Reported By: Nupur Gray MD 09/14/19 12:32 Medical Decision Making - Medical Decision Making 09/14/19 11:09 Vital Signs Temp Pulse Resp BP Pulse Ox 98.7 F 88 16 137/78 100 09/14/19 09:32 09/14/19 09:32 09/14/19 09:32 09/14/19 09:32 09/14/19 09:32 DDx female VB: ectopic , miscarriage, demise, subchorionic hematoma, retained POC, normal first trimester bleeding, UTI in in . Fibroid uterus, vaginitis, infection, electrolyte/metabolic derangements, anemia. ovarian cyst. ovarian cyst rupture. MDM: Rh positive, no rhogam indicated VS wnl, normotensive, no tachy or hypoxia/respiratory distress. abdomen benign on reeval and no peritoneal findings, no VB here, controlled [place] >56035, [place] [address] - bedside TAB sono with GS seen only, no definitive findings for definitive IUP seen (no YS or FP), no pelvic FF bedside renal sono neg for hydronephrosis, bladder wnl TVUS with no pelvic FF, normal ovaries. gestational sac seen, but no FP/YS. dates bradley to 7 weeks by ultrasound, however based on LMP should be closer to 8- 9 weeks, which are not concordant with dates. 09/14/19 11:46 prior urine microbiology positive, resistant to Bactrim and ampicillin and cefazolin. At that time patient was also given for expression. Sensitivities KIM which may not be the best regimen. Will provide IV ceftriaxone and third- generation findings. No fevers no systemic findings. Right flank tenderness is noted which is more consistent with early treat with cefpodoxime x 14 day course based on prior cultures and for pyelonephritis, with patient appearing relative well. nontoxic. 09/14/19 13:59 - [facility] called, given patients sees a Jeanie there, previously with Dr Bar spoke with Dr Zamora, likely missed with high beta, and empty GS without YS or FP. will be followed up on the office for her miscarriage, expectant management. there is no e/o ectopic treating for pyelonephritis/UTI, but no fever or toxic findings, will treat with cefpodoxime x 14 day course and will followup urine cultures pending no blood cultures indicated Dispo: OB followup with [facility], bleeding precautions and expectant management for the miscarriage, pelvic rest; return to ED if persistent and heavy vaginal bleeding, persistent pelvic pain not relieved by your prescribed medications, dizziness, shortness of breath, new and persistent fevers, other foul smelling discolored vaginal discharge, or for any other concerns. 09/14/19 14:15 Discharge - Discharge Information Problems reviewed: Yes Clinical Impression/Diagnosis: Pyelonephritis, Threatened in first trimester, Abdominal pain affecting Condition: Good Disposition: HOME - Admission No - Additional Discharge Information Prescriptions: Cefpodoxime Proxetil [Vantin -] 200 mg PO Q12H #28 tablet - Follow up/Referral Referrals: Alice Parikh MD [Staff Physician] - [facility] Small [facility] Form Operator [Provider Group] - Patient Discharge Instructions Patient Printed Discharge Instructions: DI for Kidney Infection, DI for Miscarriage, DI for Urinary Tract Infection (UTI), DI for Abdominal Pain -- Early Additional Instructions: 1) Please follow-up with your Television Audio Engineer /gynecology doctor in the next 1-2 days. Please call tomorrow for for any urgent issues. you should follow with [facility]. 2) You were given a copy of the tests performed today. Please bring the results with you and review them with your primary care doctor. Your laboratory / imaging results showed a beta hcg of 14,900 consistent with , however your ultrasound showed only a gestational sac but no yolk or fetus. this is likely going to be a miscarriage. you also have a urinary tract infection/kidney infection - this requires antibiotics (cefpodoxime twice a day x 14 days). your prior urine culture showed E.coli, though the prior antibiotic and the sensitivities showed you need stronger antibiotics. 3) If you have any worsening of symptoms or any other concerns please return to the ED immediately. Return if worsening symptoms including fevers, headache, vomiting, visual or hearing disturbances, abdominal pain, chest pain, shortness of breath, syncope, dehydration, inability to take things by mouth/vomiting, altered mental status, vaginal bleeding, fainting, or worsening concerning symptoms. 4) Please continue taking your home medications as directed. your antibiotics are for a 14 day course you should also take tylenol only for pain control, 650-975 mg every 6 hours as needed for the pain. once the antibiotic is treating the infection, your pain should improve. Stay well hydrated and rest adequately. Make an appointment. If you cannot follow-up with your primary care doctor please return to the ED - Post Discharge Activity Work/Back to School Note: Back to Work
[2019-09-14 11:33] LABS: BASO % 0.3 % (0-2.0); EOS % 0.6 % (0-4.5); HEMATOCRIT 36.9 % (32.4-45.2); LYMPH % 14.3 % (8-40); MCH 27.4 pg (25.7-33.7); MCHC 32.6 g/dl (32.0-36.0); MEAN CELL VOLUME 83.8 fl (80-96); MEAN PLT VOLUME 8.3 fl (7.5-11.1); MONO % 5.5 % (3.8-10.2); NEUT % 79.3 % (42.8-82.8); PLATELET COUNT 264 K/MM3 (134-434); RDW 15.3 % (11.6-15.6)
[2019-09-14 11:40] LABS: EPI CELLS 1.1 /HPF (0-5/HPF); HYALINE CASTS 38 /lpf (0-8); PH,URINE 6.5 (5.0-8.0); URINE APPEARANCE CLOUDY; URINE BACTERIA >9000 /hpf (NEGATIVE); URINE BILIRUBIN NEGATIVE (NEGATIVE); URINE COLOR YELLOW; URINE GLUCOSE (UA) NEGATIVE (NEGATIVE); URINE KETONE NEGATIVE (NEGATIVE); URINE LEUK ESTERASE 2+ (NEGATIVE); URINE NITRITE POSITIVE (NEGATIVE); URINE PROTEIN 2+ (NEGATIVE); URINE RBC 37 /hpf (0-4); URINE UROBILINOGEN 0.2 mg/dL (0.2-1.0); URINE WBC 161 /hpf (0-5)
[2019-09-14] MEDS ORDERED: CEFTRIAXONE 1,000 MG in DEXTROSE 5%-WATER - 50 ML IVPB ONE (11:46)
[2019-09-14 12:08] LABS: ALBUMIN 3.7 g/dl (3.4-5.0); BILIRUBIN,TOTAL 1.1 mg/dL (0.2-1); BLOOD UREA NITROGEN 8.4 mg/dL (7-18); CALCIUM 9.4 mg/dL (8.5-10.1); CREATININE 0.6 mg/dL (0.55-1.3); POTASSIUM 3.6 mmol/L (3.5-5.1); TOT PROT 7.3 g/dl (6.4-8.2)
[2019-09-14] MEDS ORDERED: CEFTRIAXONE 1 GM/50 ML BAG ONE (14:02)
[2019-09-14] MEDS ORDERED: METOCLOPRAMIDE HCL INJECTION 10 MG/2 ML VIAL IVPUSH ONE (14:21)
[2019-09-14] MEDS ORDERED: METOCLOPRAMIDE HCL INJECTION 10 MG/2 ML VIAL ONE (14:40)
[2019-09-14 15:47] VITALS: BP 118/74; PULSE 79; TEMP 98.6
== END 2019-09-14 15:15 | disposition home or self-care (01) ==
LOC: JER 09:15
PROC: 3E03329 Introduction of Other Anti-infective into Peripheral Vein, Percutaneous Approach (ICD-10-PCS; principal; 2019-09-14)
PROC: 3E033GC Introduction of Other Therapeutic Substance into Peripheral Vein, Percutaneous Approach (ICD-10-PCS; 2019-09-14)
DX: O26.891 Other specified pregnancy related conditions, first trimester (principal); Z3A.01 Less than 8 weeks gestation of pregnancy; O20.0 Threatened abortion; R10.9 Unspecified abdominal pain; N12 Tubulo-interstitial nephritis, not specified as acute or chronic; I10 Essential (primary) hypertension
CPT/HCPCS: 36415; 76775; 76815; 76817-TC; 80053; 81003; 84702; 85025; 86850; 86900; 86901; 87086; 87186; 99285-25

== ENCOUNTER 2019-09-16 09:46 | Emergency (ER) | payer BC ==
[2019-09-16 10:19] VITALS: BP 123/79; PULSE 82; TEMP 98.3; BMI 22.8
--- NOTE | 2019-09-16 11:45 | PDOC ---
History of Present Illness - General Chief Complaint: [facility] [place] Stated Complaint: MEDICAL CLEARANCE Time Seen by Provider: 09/16/19 10:17 History Source: Patient Exam Limitations: No Limitations - History of Present Illness Initial Comments: 09/16/19 11:39 Patient is a 39-year-old female who presents to the ED for repeat beta hCG quantitative after having vaginal bleeding in . She was seen by her OB /VOCATIONAL CASE MANAGER and determined to be 7 weeks gestation. Her LMP was in mid June. She states that she was having vaginal bleeding over the last 1 week. She was seen in the emergency department on 09/14/2019, had a beta-hCG and transvaginal ultrasound. The transvaginal ultrasound was consistent with a missed AB. The patient states that her vaginal bleeding is getting less and her abdominal pain is getting less. She denies any dizziness. She denies any abdominal pain at this time. Past History - Past Medical History Allergies/Adverse Reactions: Allergies Allergy/AdvReac Type Severity Reaction Status Date / Time shellfish derived Allergy Severe Swelling Verified 09/16/19 10:06 Home Medications: Ambulatory Orders Cefpodoxime Proxetil [Vantin -] 200 mg PO Q12H #28 tablet 09/14/19 Asthma: Yes (last attack 1yr ago) Cancer: No Cardiac Disorders: No COPD: No Diabetes: No HTN: Yes Seizures: No Thyroid Disease: No - Psycho Social/Smoking Cessation Hx Smoking History: Never smoked Have you smoked in the past 12 months: No Information on smoking cessation initiated: No Hx Alcohol Use: Yes Drug/Substance Use Hx: No Hx Substance Use Treatment: No Review of Systems - Review of Systems Comments:: 09/16/19 11:41 - Review of Systems Able to Perform ROS?: Yes Constitutional: No: Fever, Chills, Loss of Appetite, Night Sweats, Weakness Respiratory: No: Cough, Shortness of Breath, Wheezing, Sputum Production Cardiac (ROS): No: Chest Pain, Chest Tightness, Palpitations, Irregular Heart Beat, Edema ABD/GI: No: Nausea, Vomiting, Abdominal Pain, Diarrhea : No Dysuria, No Hematuria, No Frequency, No Urgency, No Vaginal Discharge/ Pain, No Penile Discharge/Pain Lan Specialist: vaginal bleeding in , repeat beta HCG Musculoskeletal: No: Muscle Pain, Back Pain, Joint Pain, Muscle Weakness, Neck Pain Integumentary: No: Lesions, Rash Neurological: No: Headache, Numbness, Tingling, Weakness, Speech Difficulties *Physical Exam - Vital Signs Last Vital Signs Temp Pulse Resp BP Pulse Ox 98.3 F 82 18 123/79 100 09/16/19 10:07 09/16/19 10:07 09/16/19 10:07 09/16/19 10:07 09/16/19 10:07 - Physical Exam 09/16/19 11:43 - Physical Exam General Appearance: Nourished, Appropriately Dressed, No Distress HEENT: EOMI, moist mucosa Neck: Supple, No Lymphadenopathy (R), No Lymphadenopathy (L), No Rigidity, No Decreased range of motion Respiratory/Chest: Lungs Clear, Normal Breath Sounds. No Respiratory Distress, No Accessory Muscle Use Cardiovascular: Regular Rhythm, Regular Rate, S1, S2 Gastrointestinal/Abdominal: Normal Bowel Sounds, Soft. Non-tender, No Guarding , No Rebound, No Rigidity Musculoskeletal: Normal Inspection. No Decreased Range of Motion Extremity: Normal Capillary Refill, Normal Inspection Integumentary: Normal Color, Dry. No Rash Neurologic: barrel scraper II-XII NML intact, Fully Oriented, Alert, Normal Mood/Affect, Normal Response ED Treatment Course - ADDITIONAL ORDERS Additional order review: Laboratory Results 09/16/19 10:09 Beta HCG, Quant 47579.2 Medical Decision Making - Medical Decision Making 09/16/19 11:43 Assessment: Patient is a 39-year-old female with vaginal bleeding and . She was determined to likely have a missed AB. She presents for a repeat beta-hCG to confirm that it is downtrending. Plan: The patient is followed by [facility]. She has been made aware that her beta hCG is downtrending. She should have it repeated again in 48 to 72 hours. She has been advised to follow-up in her WELDING OPERATOR clinic on Thursday, . The patient has been made aware that she may require a D&C and must follow-up with her WELDING OPERATOR. She has been given strict return precautions such as worsening abdominal pain, heavy vaginal bleeding, dizziness, high fevers, profuse vomiting or any other worsening symptoms. Discharge - Discharge Information Problems reviewed: Yes Clinical Impression/Diagnosis: Vaginal bleeding during Condition: Stable Disposition: HOME - Follow up/Referral Referrals: Nohemi Kay MD [Non Staff, Medical] - 3 days - Patient Discharge Instructions Patient Printed Discharge Instructions: DI for Miscarriage Additional Instructions: Get plenty of rest and drink plenty of fluids. Your beta hCG is downtrending but continues to need to be followed by your WELDING OPERATOR. You must follow-up with your WELDING OPERATOR on 09/19/2019. Return to the emergency department for worsening abdominal pain, heavy vaginal bleeding, dizziness, high fevers, profuse vomiting or any other worsening symptoms. - Post Discharge Activity Work/Back to School Note: Back to Work
== END 2019-09-16 11:57 | disposition home or self-care (01) ==
LOC: JER 09:46
DX: O26.891 Other specified pregnancy related conditions, first trimester (principal); O03.9 Complete or unspecified spontaneous abortion without complication; Z3A.01 Less than 8 weeks gestation of pregnancy; I10 Essential (primary) hypertension; Z87.09 Personal history of other diseases of the respiratory system
CPT/HCPCS: 36415; 84702; 99282-25

== ENCOUNTER 2019-09-22 08:53 | Day surgery (SDC) | payer BC ==
[2019-09-21 14:39] VITALS: BMI 24.6
--- NOTE | 2019-09-22 08:14 | HP ---
History & Physical Update - History History: No Change - Physical Physical: No Change - Assessment Assessment: No Change - Plan Plan: No Change (No change in HP)
--- NOTE | 2019-09-22 10:53 | OP ---
Operative Note - Note: Operative Date: 09/22/19 Pre-Operative Diagnosis: Missed Operation: Suction DC Post-Operative Diagnosis: Same as Pre-op Surgeon: Alice Parikh Anesthesia: General Estimated Blood Loss (mls): 60 Operative Report Dictated: Yes
[2019-09-22] MEDS ORDERED: MIDAZOLAM HCL 2 MG/2 ML SINGLE DOSE VIAL ONE (12:00)
[2019-09-22] MEDS ORDERED: PROPOFOL 20 ML ONE ×2 (12:00→12:28)
[2019-09-22] MEDS ORDERED: LIDOCAINE HCL/PF 2% SDV 5ML VIAL ONE (12:03)
[2019-09-22] MEDS ORDERED: DEXAMETHASONE SOD PHOSPHATE 4 MG/1 ML VIAL ONE (12:27)
[2019-09-22] MEDS ORDERED: OXYTOCIN 10 UNITS/ML VIAL ONE (12:31)
[2019-09-22] MEDS ORDERED: ACETAMINOPHEN 325 MG TABLET (FP) PO PRN (12:34)
[2019-09-22] MEDS ORDERED: IBUPROFEN 400 MG TABLET (FP) PO PRN (12:34)
[2019-09-22] MEDS ORDERED: oxyCODONE HCL 5 MG TABLET PO PRN (12:52)
--- NOTE | 2019-09-22 12:59 | OP ---
DATE OF OPERATION: 09/22/2019 PREOPERATIVE DIAGNOSIS: Missed . OPERATION: Suction dilatation and curettage. POSTOPERATIVE DIAGNOSIS: Missed . SURGEON: Alice Parikh MD ESTIMATED BLOOD LOSS: 60 mL. PROCEDURE: Patient was taken to the operating room, placed in dorsal lithotomy position, prepped and draped in the usual sterile fashion. A timeout was performed in accordance with hospital regulation. Speculum was placed in the vagina. Anterior lip of the cervix was grasped with a single-tooth tenaculum. Cervix was then dilated to accommodate the No. 8 suction curette. Suction curettage was then done. Large amounts of blood were seen in the vagina. Clots and tissue were extracted from the uterus. All instruments were then removed. Patient tolerated procedure well. Was taken to recovery room in stable condition. ALICE PARIKH M.D. EDWINA/[id number]
[2019-09-22] MEDS ORDERED: LACTATED RINGERS SOLUTION 1,000 ML IV SCH (13:00)
[2019-09-22] MEDS ORDERED: IBUPROFEN 400 MG TABLET (FP) PO ONE (14:42)
[2019-09-22 16:16] VITALS: BP 126/66; PULSE 79; TEMP 97.8
--- NOTE | 2019-09-23 16:22 | PATH ---
Surgical Pathology Report Patient Name: ANALILIA SAAVEDRA Med. Rec. #: [id number] /Age/Gender: 1980 (Age: 39) / F Account: [id number] Location: [facility] SURGICAL Taken: 09/22/2019 Received: 09/22/2019 Reported: 09/23/2019 Physicians: Alice Parikh M.D. Specimen(s) Received A: CONTENTS OF UTERUS B: PRODUCTS OF CONCEPTION Clinical History Missed Final Diagnosis A. CONTENTS OF UTERUS, REMOVAL: DEGENERATIVE BLOOD AND INFLAMMATORY EXUDATE ADMIXED WITH SCANTY UNREMARKABLE SQUAMOUS EPITHELIUM. B. PRODUCTS OF CONCEPTION: CHORIONIC VILLI PRESENT, CONSISTENT WITH PRODUCTS OF CONCEPTION. Electronically Signed Andrew Cornelius M.D. Gross Description A. Received in formalin labeled "contents of uterus," is a 3.8 x 3.0 x 0.5 cm aggregate of duran-brown soft tissue fragments. No definitive villous tissue or somatic tissue is identified. The specimen is entirely submitted in 3 cassettes. B. Received in formalin labeled "products of conception," is a 13.0 x 8.5 x 0.8 cm aggregate of duran red soft tissue fragments. Villous tissue is identified. No somatic tissue is identified. A provider relations representative portion is submitted in one cassette. 09/22/2019 [facility]09/22/2019
== END 2019-09-22 16:16 | disposition home or self-care (01) ==
LOC: JASU-SURG 08:53
PROVIDERS: ATTEND Obstetrics & Gynecology
PROC: 10D17ZZ Extraction of Products of Conception, Retained, Via Natural or Artificial Opening (ICD-10-PCS; principal; 2019-09-22 11:30)
DX: O02.1 Missed abortion (principal)
CPT/HCPCS: 36415; 84702; 86850; 86900; 86901; 88305-TC; 94760

== ENCOUNTER 2022-04-14 02:55 | Emergency (ER) | payer BC ==
[2022-04-14 03:07] VITALS: RESP 20; TEMP 98.5; BMI 24.7
[2022-04-14] MEDS ORDERED: ACETAMINOPHEN 1000 MG/100 ML BAG IVPB ONE (03:22)
[2022-04-14] MEDS ORDERED: LACTATED RINGERS SOLUTION 1000 ML INFUS.BAG IV ONE (03:22)
[2022-04-14] MEDS ORDERED: DEXAMETHASONE SOD PHOSPHATE 10 MG/1 ML VIAL IVPUSH ONE (03:23)
[2022-04-14] MEDS: ALBUTEROL SO4 2.5/IPRATROPIUM 0.5 INH SOL 3 ML VIAL.NEB. NEB SCH ×2 (03:34→03:53)
[2022-04-14] MEDS ORDERED: DEXAMETHASONE SOD PHOSPHATE 10 MG/1 ML VIAL ONE (03:43)
[2022-04-14] MEDS ORDERED: ACETAMINOPHEN INJECTION 100 ML IVPB ONE (03:43)
[2022-04-14 04:06] LABS: BASO % 0.4 % (0-2.0); EOS % 7.5 % (0-4.5); HEMATOCRIT 39.8 % (32.4-45.2); HEMOGLOBIN 13.1 GM/dL (10.7-15.3); LYMPH % 16.5 % (8-40); MCH 27.1 pg (25.7-33.7); MCHC 32.9 g/dl (32.0-36.0); MEAN CELL VOLUME 82.3 fl (80-96); MEAN PLT VOLUME 8.8 fl (7.5-11.1); MONO % 7.2 % (3.8-10.2); NEUT % 68.4 % (42.8-82.8); PLATELET COUNT 242 10^3/uL (134-434); RBC 4.84 M/mm3 (3.60-5.2); RDW 14.8 % (11.6-15.6); WHITE BLOOD COUNT 10.3 K/mm3 (4.0-10.0)
[2022-04-14 04:13] LABS: CALCIUM 9.1 mg/dL (8.5-10.1)
[2022-04-14 04:14] LABS: ALBUMIN 4.1 g/dl (3.4-5.0); BLOOD UREA NITROGEN 7.8 mg/dL (7-18)
[2022-04-14 04:17] LABS: CREATININE 0.8 mg/dL (0.55-1.3)
[2022-04-14 04:19] LABS: BILIRUBIN,TOTAL 0.6 mg/dL (0.2-1); TOT PROT 7.3 g/dl (6.4-8.2)
[2022-04-14 05:35] VITALS: BP 132/96; PULSE 106
[2022-04-14] MEDS ORDERED: POTASSIUM CHLORIDE ORAL LIQUID 20 MEQ/15 ML PO ONE (05:35)
[2022-04-14] MEDS ORDERED: POTASSIUM CHLORIDE ORAL LIQUID 20 MEQ/15 ML ONE (05:41)
== END 2022-04-14 06:08 | disposition home or self-care (01) ==
LOC: JER 02:55
PROC: 3E0333Z Introduction of Anti-inflammatory into Peripheral Vein, Percutaneous Approach (ICD-10-PCS; principal; 2022-04-14)
PROC: 3E0333Z Introduction of Anti-inflammatory into Peripheral Vein, Percutaneous Approach (ICD-10-PCS; 2022-04-14)
PROC: 3E0F7GC Introduction of Other Therapeutic Substance into Respiratory Tract, Via Natural or Artificial Opening (ICD-10-PCS; 2022-04-14)
DX: J45.901 Unspecified asthma with (acute) exacerbation (principal)
CPT/HCPCS: 0241U-QW; 36415; 71045-TC-FY; 80053; 84484; 84703; 85025; 93005; 93010; 99285-25; J1100